=== PATIENT | female | born 1990 | race Caucasian/White ===

== ENCOUNTER 2022-02-25 02:01 | Outpatient (CLI) | payer BC, SELFPAY ==
[2022-02-25 11:51] LABS: Kit/Specimen SENT
[2022-02-25 11:55] LABS: Abs Immature Grans 0.02 10^3/uL (0.0-0.06); Absolute Basophil Count 0.02 10^3/uL (0.0-0.2); Absolute Eosinophil Count 0.02 10^3/uL (0.0-0.7); Absolute Lymphocyte Count 2.31 10^3/uL (1.2-3.4); Absolute Monocyte Count 0.54 10^3/uL (0.1-0.8); Absolute Neutrophil Count 6.74 10^3/uL (1.2-6.7); Basophils % 0.2; Eosinophils % 0.2; HCT 36.7 % (36.0-46.0); HGB 12.3 g/dL (11.2-15.7); Immature Grans % 0.2; Lymphocytes % 23.9; MCH 29.4 pg (27.0-33.0); MCHC 33.5 % (32.0-36.0); MCV 88 fL (80-95); MPV 11.5 fL (8.0-11.0); Monocytes % 5.6; Neutrophils % 69.9; Platelet Count 192 10^3/uL (130-400); RBC 4.18 10^6/uL (3.93-5.22); RDW 11.2 % (11.7-14.6); RDW-SD 35.8 fL; WBC 9.65 10^3/uL (4.4-10.8)
[2022-02-25 14:18] LABS: *AMPHETAMINES SCREEN URINE Negative (Negative); *BARBITURATES SCREEN URINE Negative (Negative); *BENZODIAZEPINES SCREEN URINE Negative (Negative); Cannabinoids THC Negative (Negative); Cocaine Screen,Urine Negative (Negative); METHADONE URINE SCREEN Negative (Negative); OPIATES URINE SCREEN Negative (Negative); Tricyclic Antidepressants Negative (Negative)
[2022-02-28 14:43] LABS: Syphilis IgG w/Reflex Nonreactive (Nonreactive)
[2022-03-05 14:37] LABS: Buprenorphine Negative ng/mL (Cutoff: 5.0); Norbuprenorphine Negative ng/mL (Cutoff: 2.5)
== END 2022-02-25 02:02 | disposition home or self-care (01) ==
LOC: LBO 02:01
PROVIDERS: Visit Provider Advanced Practice Midwife
DX: Z34.91 Encounter for supervision of normal pregnancy, unspecified, first trimester
CPT/HCPCS: 36415; 80307; 86850; 86900; 86901; 85025; 86780; 87086

== ENCOUNTER 2022-06-22 02:10 | Outpatient (CLI) | payer BC, SELFPAY ==
[2022-06-22 09:36] LABS: HGB 11.2 g/dL (11.2-15.7); MCH 29.6 pg (27.0-33.0); MCHC 32.9 % (32.0-36.0); MCV 90 fL (80-95); MPV 10.7 fL (8.0-11.0); Platelet Count 184 10^3/uL (130-400); RBC 3.78 10^6/uL (3.93-5.22); RDW 12.1 % (11.7-14.6); RDW-SD 39.5 fL; WBC 10.08 10^3/uL (4.4-10.8)
[2022-06-22 09:59] LABS: Glucose,1 Hr (Glucola) 111 mg/dL (80-140)
== END 2022-06-22 02:11 | disposition home or self-care (01) ==
LOC: LBO 02:10
PROVIDERS: Visit Provider Advanced Practice Midwife
DX: Z34.93 Encounter for supervision of normal pregnancy, unspecified, third trimester (principal); Z3A.28 28 weeks gestation of pregnancy
CPT/HCPCS: 36415; 82950; 85027

== ENCOUNTER 2022-06-23 17:15 | Outpatient (CLI) | payer BC, SELFPAY ==
[2022-06-23 17:46] VITALS: BP 118/72; PULSE 99; TEMP 37
[2022-06-23 17:48] VITALS: BP 118/72; PULSE 99
--- NOTE | 2022-06-24 08:39 | W.OBNST ---
Date of service: 06/24/22 Time of Service: 08:40 NST Evaluation Reason for NST Reasons for Nonstress Test: OTHER, SEE COMMENT Reason for NST Other: fall Gestational Age Gestational Age in Weeks and Days: 28 Weeks and 2Days Test and Monitor Explained Test/Monitor Explained: Test Explained, Monitor Explained and Patient Verbalized Understanding Vital Signs Blood Pressure: 118/72 Pulse: 99 Temperature: 98.6 F Urine Results Urine Protein: Negative Urine Ketones: Positive Urine Glucose: Negative Urine Blood: Negative NST Information Date on Monitor: 06/23/22 Time on Monitor: 17:45 Date off Monitor: 06/23/22 Time off Monitor: 18:06 Total Time on Monitor: 21 NST Interventions: PO Hydration Contraction Frequency: 0 NST Evaluation Patient States Movement: Present FHR Baseline: 145 Variability: Moderate 6-25 bpm Accelerations: 10x10 Decelerations: None NST Results: Reactive Note N/A NST Note Note: Lisa fell on her hands and knees this morning. She denies striking her abdomen or having any discomfort. She was instructed to come in for an NST for wellbeing. reactive NST. Rest encouraged and call with any discomfort or decreased movement NST Reviewed and Verified by: Jacqueline Harley
[2022-06-24 08:41] VITALS: BP 118/72; PULSE 99; TEMP 37
== END 2022-06-23 18:14 | disposition home or self-care (01) ==
LOC: BCD 17:19 → OBS 17:20
PROVIDERS: Visit Provider Advanced Practice Midwife
DX: W00.9XXA Unspecified fall due to ice and snow, initial encounter (principal); O26.893 Other specified pregnancy related conditions, third trimester; Z3A.28 28 weeks gestation of pregnancy
CPT/HCPCS: 59025

== ENCOUNTER 2022-07-18 01:10 | Outpatient (CLI) | payer BC, SELFPAY ==
--- NOTE | 2022-07-18 07:15 | DI.US_ITS ---
Exam(s) US OB TAMEKA WEIGHT EXAM: US OB TAMEKA WEIGHT CLINICAL HISTORY: covid infection in ,z34.90,U07.1,O98.512. TECHNIQUE: Transabdominal obstetrical ultrasound performed. COMPARISON: No exams were available for comparison FINDINGS:: Number of fetuses: One. position: Vertex. Placental location: Anterior/fundal no evidence of previa. BIOMETRIC DATA: BPD: 80mm = 32+ 0 weeks HC: 293mm = 32+2 weeks AC: 278mm = 31+ 6 weeks FL: 61 mm = 31+ 6 weeks EFW: 1859 Gms = 40% Composite Age: 32+ 0 weeks EDC: 12 September 2022 Heart Rate: 145BPM Amniotic fluid index: 13.8 cm. Amount of fluid is visually within normal limits. IMPRESSION: size and weight are within the expected range. DATA REPOSITORY:
== END 2022-07-18 01:30 ==
LOC: DI 01:10
PROVIDERS: Visit Provider Advanced Practice Midwife
DX: Z86.16 Personal history of COVID-19; Z34.93 Encounter for supervision of normal pregnancy, unspecified, third trimester
CPT/HCPCS: 76816

== ENCOUNTER 2022-08-15 09:52 | Outpatient (REF) | payer BC, SELFPAY ==
[2022-08-15 11:26] LABS: *AMPHETAMINES SCREEN URINE Negative (Negative); *BARBITURATES SCREEN URINE Negative (Negative); *BENZODIAZEPINES SCREEN URINE Negative (Negative); Cannabinoids THC Negative (Negative); Cocaine Screen,Urine Negative (Negative); METHADONE URINE SCREEN Negative (Negative); OPIATES URINE SCREEN Negative (Negative)
[2022-08-15 11:28] LABS: Tricyclic Antidepressants Negative (Negative)
== END 2022-08-15 09:53 | disposition home or self-care (01) ==
LOC: LBN 09:52
PROVIDERS: Visit Provider Advanced Practice Midwife
DX: Z34.93 Encounter for supervision of normal pregnancy, unspecified, third trimester (principal); Z36.85 Encounter for antenatal screening for Streptococcus B; Z3A.35 35 weeks gestation of pregnancy
CPT/HCPCS: 80307; 87081

== ENCOUNTER 2022-08-22 17:08 | Outpatient (REF) | payer BC, SELFPAY | END 2022-08-22 17:09 | disposition home or self-care (01) | LOC: LBN 17:08 | PROVIDERS: Visit Provider Advanced Practice Midwife | DX: O26.893 Other specified pregnancy related conditions, third trimester (principal); R30.0 Dysuria; Z3A.36 36 weeks gestation of pregnancy | CPT/HCPCS: 87086 ==

== ENCOUNTER 2022-09-05 04:48 | Inpatient (IN) | payer BC, SELFPAY ==
[2022-09-05] VITALS (11 sets, daily range): BP systolic 101–122; BP diastolic 58–72; PULSE 57–94; RESP 16–26; TEMP 36.6–36.9
--- NOTE | 2022-09-05 04:49 | W.PM.OBHPL1 ---
Date of service: 09/05/22 Time of Service: 04:30 Assessment and Plan Assessment and plan (1) Uterine contractions: Status: Acute Assessment and plan: 1. Not in active labor on arrival, will observe for 2 hours and reassess for cervical change from /- 2. Reactive tracing obtained, will allow patient to ambulate. SOTO OB-HPI Labor/Delivery History of Present Illness Reason for Visit: uterine contractions Chief Complaint: Uterine Contractions. LIANG Calculator Estimated Delivery Date Method Current WG Current Estimate 09/13/22 Ultrasound #1 38w 6d Other Estimates 09/02/22 LMP (Uncertain) 40w 3d Comments: Lisa and Joey present for assessment of uterine contractions that began at 1030pm on 09/04/22. Denies ROM or show. Baby has been active. States contractions are every 3-4 minutes and more uncomfortable. Patient is coping well. SOTO History of Present Expected Delivery Route/Plan - CLYDE FOB/ - Joey Ashley BG / GBS neg Took childbirth class- prefers no pain medication if possible. She would like to ask for pain meds rather than being offered. Joey only for labor support Specific Issues/Plan 1. Infertility, PCOS conceived at [facility] with Letrizole and clomid treatment. Metformin taken until 12 weeks. 2. level 2 US scheduled per patient request[place] [facility] [place] nml 2a. 1[place] [facility] [place] 20 weeks 110, 1-hr GTT at 28 xaf=002 3. Panorama 02/25 LR female-Previous neg CF, SMA testing through [facility] broad carrier screening at [facility]- Declines AFP 4. Headaches- magnesium PO daily recommended. Headaches improved in 2nd trimester. 5. Lisa had initial COVID vaccines, Joey vaccinated and had 1 booster- Covid infection 05/14/22 - paxlovid escribed, ASA recommended daily- 32 week growth US scheduled 07/18: 40th percentile, TAMEKA=13 Assessment: History Reviewed & Current Review of Systems All systems reviewed & are unremarkable except as noted in HPI and below PFSH All Active Problems (Updated 09/05/22 @ 04:59 by Jacqueline Dexter CNM) Uterine contractions (Acute) Dysuria (Acute) COVID-19 affecting in second trimester (Acute) Chronic headaches (Acute) PCOS (polycystic ovarian syndrome) (Acute) metformin treatment for infertility History of infertility (Acute) H/O removal of cyst (Acute) axillary (Acute) Social History Smoking risk assessment performed?: No History History 1 Para 0 Hx # Term Pregnancies 0 Multiple births 0 Hx # Pregnancies 0 Ectopic pregnancies 0 AB induced 0 Hx Number of Living Children 0 AB spontaneous 0 Meds Allergies and Home Medications Allergies Allergy/AdvReac Type Severity Reaction Status Date / Time diphenhydramine Allergy Severe Hives Verified 09/05/22 04:54 [From Benadryl] Home Medications Medication Instructions Recorded Confirmed Type omeprazole 20 mg capsule,delayed 20 mg PO DAILY 02/25/22 08/29/22 History release vits no.126-ferrous fum tab PO DAILY 02/25/22 08/29/22 History 28 mg iron-folic acid 800 mcg tablet (Classic ) magnesium hydroxide 400 mg (170 mg 400 mg PO DAILY 04/25/22 08/29/22 History magnesium) chewable tablet aspirin 81 mg tablet,delayed 81 mg PO DAILY #30 tabs 05/14/22 08/29/22 Rx release Exam Physical Exam Vital signs: Pulse BP 76 119/70 09/05/22 04:19 09/05/22 04:19 Vital Signs Reviewed: Yes Constitutional Constitutional: no acute distress Detailed Labor and Delivery Exam Dilation: 2 Effacement (%): 70 station: -2 Cervix position: posterior Consistency: soft Wolfe Score: Cervical Points Exam 0 1 2 3 Dilation Closed 1-2cm 3-4 cm 5-6cm Effacement 0-30% 40-50% 60-70% 80% Consistency Firm Medium Soft Station -3 -2 -1,0 +1,+2 Position Posterior Mid Anterior WOLFE Score(Cervical Ripeness Score): 6 Amniotic Membrane Status: Intact Monitor Mode: External Contraction Frequency(min): 3-5 Contraction Duration(sec): 40-60 Contraction Intensity: Mild Fetus A Heart Rate Baseline: 125 Monitor Accelerations: 15 X 15 Monitor Decelerations: None Variability: Moderate (6-25 BPM) Categories: Category I Est. Weight: 7 lb HEENT Exam HEENT Exam: Normal Neck Exam Neck Exam: Normal (visual exam normal, full range of motion) Chest/Brest/Axilla Exam Chest Exam: Not Done Breast Exam Breast Exam: Not Done Respiratory Exam Respiratory Exam: Normal Cardiovascular Exam Cardiovascular Exam: Normal Abdominal Exam Abdominal Exam: Normal (uterus is gravid, size equals dates) Rectal Exam Rectal Exam: Not Done Exam Exam: Normal Extremities Exam Extremities Exam: Normal Back/Spine/Pelvis Exam Back Exam: Not Done Pelvis Adequate: Yes Skin Exam Skin Exam: Normal Neurological Exam Neurological Exam: Normal Psychiatric Exam Psychiatric Exam: Normal Results Results Group Beta Strep: Negative Blood Type: A+ Rubella Status: Immune Varicella Immunity: Immune Lab Results: Hep B&C neg, HIV neg, Syphilis neg, cfDNA through [facility] LR female, CF and SMA neg through [facility], conceived on Clomid and Letrizole Risk Assessment Risk for Shoulder Dystocia Historical/Initial OB: NEGATIVE FOR: Pelvic Abnormality, Pre- BMI>30, Previous Shoulder Dystocia or Previous Macrosomia 40 Weeks: NEGATIVE FOR: EFW> 4500 gms, Maternal Weight Gain >40lb or Post Dates Delivery Plan @ 36wks: NVD planned. Delivery Plan @ 40 wks: NVD Risk for Pre-Eclampsia Yes, if one or more: NEGATIVE FOR: Hx Pre-E/Gest HTN, Chronic HTN, Multiple Gestation, Pre-gestational DM, Renal Disease, Systemic Lupus or APA Syndrome Yes, if 2 or more: POSITIVE FOR: Nulliparity; NEGATIVE FOR: Age>= 35 yrs, >10yr btwn pregnancies, BMI>30, ethinicty, Mother/Sister w/ Pre-E or Previous IUGR Risk for Post- Hemorrhage Initial: NEGATIVE FOR: Multiple Gestation, Previous PPH, Known Clotting Deficiency, Grand Multiparity or Anticoagulation At Risk?: No Counseled re: Active Management: Yes Date/Initials: 09/05/22 KH Risks Reviewed Risks Reviewed Upon Admission: Yes
--- NOTE | 2022-09-05 06:42 | W.PM.OBNL1 ---
Date of service: 09/05/22 Time of Service: 06:42 Pelvic Exam Dilation: 4 Effacement (%): 80 station: -2 Consistency: soft Comments: + show with VE, membranes are bulging at cervix. SOTO Contractions Monitor Mode: Palpation Contraction Frequency(min): 2-3 Contraction Duration(sec): 60 Intensity: Moderate Fetus A Monitor: Doppler Assessment and Plan Assessment and plan (1) Normal labor: Status: Acute Assessment and plan: 1. Admit at this time, CBC and type and screen as well as COVID test 2. Support normal labor and patient desire for minimal interventions 3. Reassess in 2 hours or prn 4. Expect NVD. SOTO Objective Temp Pulse Resp BP 97.9 F 76 18 119/70 09/05/22 04:54 09/05/22 04:54 09/05/22 04:54 09/05/22 04:54 Vital Signs Reviewed: Yes Subjective Interval history since last seen: Lisa is doing well with contractions that are more intense now. SOTO
[2022-09-05 08:02] LABS: HCT 32.5 % (36.0-46.0); HGB 10.7 g/dL (11.2-15.7); MCH 26.8 pg (27.0-33.0); MCHC 32.9 % (32.0-36.0); MCV 82 fL (80-95); MPV 12.4 fL (8.0-11.0); Platelet Count 176 10^3/uL (130-400); RBC 3.99 10^6/uL (3.93-5.22); RDW 12.7 % (11.7-14.6); RDW-SD 37.6 fL; WBC 15.06 10^3/uL (4.4-10.8)
[2022-09-05 08:03] LABS: Source Nasal/Nares
[2022-09-05 09:18] LABS: COVID-19 PCR Negative (Negative)
[2022-09-05] MEDS: Oxytocin 10 UNITS/ML VIAL IM (16:30)
--- NOTE | 2022-09-05 17:13 | OBVDS_ITS ---
Date of service: 09/05/22 Time of Service: 17:13 OB Labor/ Delivery Information Baby A Delivery Delivery Method: Spontaneaous Presentation: Vertex Vertex Position: Right Occipital Anterior Cord Description-Baby A: 3 Vessels and Clamped/Cut Amniotic Fluid: Clear Estimated Blood Loss: 150 Delivery Outcome: Liveborn Infant Complications: none Note: Lisa presented early in the day on 09/05/22 in early labor. Progressed well and was 10 cm at 1620 and second stage huddle done. She delivered a live female DOUGLAS over hemostatic 1st degree laceration at introitus at 1628. Baby was placed skin to skin and positive family bonding was noted. Cord was double clamped and cut by FOB after 4 minutes of delayed cord clamping. 10 units of Pitocin was given IM after baby delivered. Placenta delivered via briseno mechanism at 1637, intact. Fundus firms to U-1 with massage. EBL 150cc. Baby 9 at 1 minute and 9 at 5 minutes. Weight is 6lb9.60z. Lisa and Joey plan to breast feed their daughter. Baby does not have a name yet. Expect normal PP course. Due to infertility couple do not plan a contraceptive use. Providers Nurse Machinist Apprentice Wood: Jacqueline Dexter Nurse: Niya Dillard Nurse: Svitlana Temple Labor/Delivery Information Number of Babies in Womb: 1 Steroids Given: None Reason Steroids Not Administered: N/A Group Beta Strep: Negative Rubella Status: Immune Blood Type: A+ Varicella Immunity: Immune Medication in Delivery: [id number] IM Maternal Complications: None Shoulder Dystocia: No Stages of Labor Onset of Labor Date: 09/04/22 Onset of Labor Time: 22:30 Complete Dilatation Date: 09/05/22 Complete Dilatation Time: 16:20 Labor - Stage 1 Duration: 17 hours and 50 minutes ROM Baby A: 09/05/22 Infant Delivery Date-Baby A: 09/05/22 Infant Delivery Time-Baby A: 16:28 Labor Stage 2 Duration: 8 minutes Placenta Delivery Date-Baby A: 09/05/22 Placenta Delivery Time-Baby A: 16:37 Labor-Stage 3 Duration: 9 minutes Total Length of Labor-Baby A: 17 hours and 58 minutes Placenta Cultured: No Placenta Status: Delivered Baby A Gender: Female Gestational Status: Term (39-41.6 wks) Gestational Age in Weeks/Days: 38 Weeks and 6 Days Score-1 Minute Interval(Baby A) Heart Rate-1 minute: 100 BPM or Greater Respiratory Effort- 1 minute: Spontaneous/Strong Cry Muscle Tone-1 minute: Active Movement Reflex Response-1 minute: Prompt Response Color-1 minute: Bluish Hands or Feet Total Score-1 minute: 9 Score-5 Minute Interval(Baby A) Heart Rate- 5 minute: 100 BPM or Greater Respiratory Effort-5 minute: Spontaneous/Strong Cry Muscle Tone-5 minute: Active Movement Reflex Response-5 minute: Prompt Response Color-5 minute: Bluish Hands or Feet Total Score- 5 minute: 9
[2022-09-05] MEDS: Acetaminophen 325 MG TAB 650 MG PO (17:44)
[2022-09-05] MEDS: Ibuprofen 600 MG TAB PO (17:44)
[2022-09-06 01:14] VITALS: BP 115/67; PULSE 82; RESP 16; TEMP 36.8
[2022-09-06] MEDS: Ibuprofen 600 MG TAB PO (05:49)
[2022-09-06] MEDS: Acetaminophen 325 MG TAB 650 MG PO (05:50)
[2022-09-06 07:50] VITALS: BP 104/65; PULSE 82; RESP 12; TEMP 37
--- NOTE | 2022-09-06 09:22 | OBPPV_ITS ---
Date of service: 09/06/22 Time of Service: 09:22 Assessment and Plan Assessment and plan (1) care following vaginal delivery: Status: Acute Assessment and plan: 1. Continue present management 2. Consider discharge tonight or in am. SOTO (2) Lactating mother: Status: Acute Assessment and plan: 1. Will work with to develop good feeding plan. SOTO Subjective Subjective Interval history: Eva are doing well with their baby girlDionne. Breast feeding is the current challenge. She is doing own ADL's. Denies pain. No heavy bleeding. SOTO [place] baby status: Doing well and Rooming in feeding status: Exclusively breast feeding Exam Physical Exam Vital signs: Temp Pulse Resp BP 98.6 F 82 12 104/65 09/06/22 07:50 09/06/22 07:50 09/06/22 07:50 09/06/22 07:50 Vital Signs Reviewed: Yes Constitutional Constitutional: no acute distress, average body habitus and cooperative HEENT Exam HEENT Exam: Normal Neck Exam Neck Exam: Normal (normal visual inspection) Respiratory Exam Respiratory Exam: Normal Cardiovascular Exam Cardiovascular Exam: Normal Abdominal Exam Abdomen: Other (normal exam) Fundal Exam Fundus: Below Umbilicus and Firm Comment: small lochia noted. Rectal Exam Rectal Exam: Not Done Exam Perineum: Intact and Normal Extremities Exam Extremity Exam: Normal (denies calf tenderness) and Full ROM Back/Spine/Pelvis Exam Back Exam: Normal Skin Exam Skin Exam: Normal Neurological Exam Neurological Exam: Normal Psychiatric Exam Psychiatric Exam: Normal Results Hemoglobin/Hematocrit: Hgb 10.7 g/dL (11.2-15.7) L 09/05/22 07:50 Hct 32.5 % (36.0-46.0) L 09/05/22 07:50 Abnormal Lab Findings: Abnormal Labs 09/05/22 07:50 WBC 15.06 H Hgb 10.7 L Hct 32.5 L MCH 26.8 L MPV 12.4 H
[2022-09-06 19:54] VITALS: BP 129/75; PULSE 80; RESP 16; TEMP 37.1; O2SAT 98
[2022-09-07] MEDS: Ibuprofen 600 MG TAB PO (05:41)
--- NOTE | 2022-09-07 07:33 | OBPPV_ITS ---
Date of service: 09/07/22 Time of Service: 07:33 Assessment and Plan Assessment and plan (1) care following vaginal delivery: Status: Acute Assessment and plan: 1. continue present management, probable discharge later this morning (2) Lactating mother: Status: Acute Assessment and plan: 1. Has worked with for feeding plan, probable discharge later this morning after pediatric assessment. Subjective Subjective Interval history: Lisa is doing well. Feels like she has a good feeding plan for baby. Using nipple shield from time to time. Denies pain or heavy bleeding. Voiding without difficulty. Plans discharge later today. Patient's Mood: happy [place] baby status: Doing well, Nursing well and Rooming in [place] feeding status: Exclusively breast feeding Exam Physical Exam Vital signs: Temp Pulse Resp BP Pulse Ox 98.7 F 80 16 129/75 98 09/06/22 19:54 09/06/22 19:54 09/06/22 19:54 09/06/22 19:54 09/06/22 19:54 Vital Signs Reviewed: Yes Constitutional Constitutional: no acute distress, average body habitus and cooperative HEENT Exam HEENT Exam: Normal Neck Exam Neck Exam: Normal (normal visual inspection) Respiratory Exam Respiratory Exam: Normal Cardiovascular Exam Cardiovascular Exam: Normal Abdominal Exam Abdomen: Other (normal exam) Fundal Exam Fundus: Below Umbilicus and Firm Comment: small lochia noted. Rectal Exam Rectal Exam: Not Done Exam Perineum: Intact and Normal Extremities Exam Extremity Exam: Normal (denies calf tenderness) and Full ROM Back/Spine/Pelvis Exam Back Exam: Normal Skin Exam Skin Exam: Normal Neurological Exam Neurological Exam: Normal Psychiatric Exam Psychiatric Exam: Normal Results Hemoglobin/Hematocrit: Hgb 10.7 g/dL (11.2-15.7) L 09/05/22 07:50 Hct 32.5 % (36.0-46.0) L 09/05/22 07:50 Abnormal Lab Findings: Abnormal Labs 09/05/22 07:50 WBC 15.06 H Hgb 10.7 L Hct 32.5 L MCH 26.8 L MPV 12.4 H
[2022-09-07 08:45] VITALS: BP 106/68; PULSE 76; RESP 16; TEMP 36.6; O2SAT 98
--- NOTE | 2022-09-07 08:59 | W.PM.OBDISCH ---
Date of service: 09/07/22 Time of Service: 08:59 DS: Diagnosis Discharge Diagnosis (1) care following vaginal delivery: Status: Acute Asessment and Plan: 1. Discharge to home, reviewed PP warning signs and when/how to call. 2. RTO in 2 and 6 weeks PP (2) Lactating mother: Status: Acute Asessment and Plan: 1. Breast feeding is getting better today. Working with to develop good feeding plan prior to discharge. 2. RTO 2-6 weeks and pediatric follow up tomorrow and then as scheduled 3. Discussed signs of mastitis and to call with any concerns. Discharge Plan Disposition Patient Disposition: Home Condition: Good Discharge Details Reason For Visit: Uterine Contractions Admit Date/Time: 09/05/22 04:48 Admit Provider: Jacqueline Dexter Attending Provider: Jacqueline Dexter Hospital Course Hospital Course: Normal labor and of live female. Normal PP course. Working with on breast feeding and will follow up with Pediatrics as scheduled. Lisa will RTO in 2 and 6 weeks. Home Meds and New Rx's Prescriptions: Continued Classic 28 mg iron- 800 mcg tablet PO DAILY magnesium hydroxide 400 mg (170 mg magnesium) tablet,chewable 400 mg PO DAILY Discontinued omeprazole 20 mg capsule,delayed release(DR/EC) 20 mg PO DAILY aspirin 81 mg tablet,delayed release (DR/EC) 81 mg PO DAILY Qty: 30 6RF Discharge Instructions Instructions: Mastitis (GEN), Depression (GEN) Stand Alone Forms: BC Instructions, BC Post Vaginal Deliver Activity:: Activity as Tolerated Equipment/Supplies:: No Equipment Needed Diet:: As Tolerated Discharge Orders Discharge Orders: Discharge Order (Routine); Ordered 09/07/22 Ordered By: Jacqueline Dexter OB:DS Summary Summary Vaginal Delivery Method: Spontaneaous Episiotomy Description: None Laceration Description: Perineal Laceration Extension: First Degree Contraception Discussed Contraception Discussed: Yes (due to infertility they opt not to use any contraception), Infant Gender-Baby A: Female weight: 6 lb 9.646 oz Status at Discharge Functional status at discharge: independent ambulation Overall status at discharge: patient is back to baseline Mental Status: mental status grossly normal Speech and Movement: speech and movement normal Mood: congruent mood Affect: normal affect Time Spent with Patient providing and/or coordinating discharge services: Less than 30 minutes Exam Physical Exam Vital signs: Temp Pulse Resp BP Pulse Ox 98.7 F 80 16 129/75 98 09/06/22 19:54 09/06/22 19:54 09/06/22 19:54 09/06/22 19:54 09/06/22 19:54 Vital Signs Reviewed: Yes Constitutional Constitutional: no acute distress, average body habitus and cooperative HEENT Exam HEENT Exam: Normal Neck Exam Neck Exam: Normal (normal visual inspection) Respiratory Exam Respiratory Exam: Normal Cardiovascular Exam Cardiovascular Exam: Normal Abdominal Exam Abdomen: Other (normal exam) Fundal Exam Fundus: Below Umbilicus and Firm Comment: small lochia noted. KH Rectal Exam Rectal Exam: Not Done Exam Perineum: Intact and Normal Extremities Exam Extremity Exam: Normal (denies calf tenderness) and Full ROM Back/Spine/Pelvis Exam Back Exam: Normal Skin Exam Skin Exam: Normal Neurological Exam Neurological Exam: Normal Psychiatric Exam Psychiatric Exam: Normal PFSH All Active Problems (Updated 09/06/22 @ 09:24 by Jacqueline Dexter CNM) Lactating mother (Acute) care following vaginal delivery (Acute) Chronic headaches (Acute) (Acute) Medical History (Updated 09/06/22 @ 09:24 by Jacqueline Dexter CNM) COVID-19 affecting in second trimester Dysuria History of infertility Normal labor PCOS (polycystic ovarian syndrome) metformin treatment for infertility Uterine contractions Surgical History (Updated 09/05/22 @ 06:45 by Jacqueline Dexter CNM) H/O removal of cyst axillary Social History Smoking risk assessment performed?: No History History 1 Para 0 Hx # Term Pregnancies 0 Multiple births 0 Hx # Pregnancies 0 Ectopic pregnancies 0 AB induced 0 Hx Number of Living Children 0 AB spontaneous 0 DS: Data Vitals/I&O Vitals and I&O: Vital Signs Temperature 98.7 F 09/06/22 19:54 Temperature Source Oral 09/06/22 19:54 Pulse 80 09/06/22 19:54 Pulse Rhythm Regular 09/06/22 07:50 Respiratory Rate 16 09/06/22 19:54 Blood Pressure 129/75 09/06/22 19:54 Blood Pressure Mean 93 09/06/22 19:54 Pulse Oximetry 98 09/06/22 19:54 Pain Level 2 09/07/22 05:41 Comment breathing with contrx 09/05/22 15:17 Intake & Output 09/06/22 09/06/22 09/07/22 11:59 23:59 11:59 Output Total 1000 / 1000 Balance -1000 / -1000 Output: Urine 1000 / 1000 Other: Urine Color Yellow
== END 2022-09-07 12:24 | disposition home or self-care (01) | DRG 807 ==
PROVIDERS: Admitting Provider Advanced Practice Midwife; Visit Provider Advanced Practice Midwife
DX: O99.284 Endocrine, nutritional and metabolic diseases complicating childbirth (principal); Z37.0 Single live birth; Z3A.38 38 weeks gestation of pregnancy; E28.2 Polycystic ovarian syndrome; R51.9 Headache, unspecified; O75.89 Other specified complications of labor and delivery
CPT/HCPCS: 36415; 85027; 86850; 86900; 86901; 87635; J2590

== ENCOUNTER 2022-09-20 16:42 | Outpatient (CLI) | payer BC, SELFPAY | END 2022-09-20 16:43 | disposition home or self-care (01) | LOC: LBO 16:42 | PROVIDERS: Visit Provider Advanced Practice Midwife | DX: O92.79 Other disorders of lactation; O99.285 Endocrine, nutritional and metabolic diseases complicating the puerperium | CPT/HCPCS: 36415; 84443 ==

== ENCOUNTER 2022-10-17 13:43 | Outpatient (REF) | payer BC, SELFPAY ==
--- NOTE | 2022-10-17 13:15 | PAPFT_PTH ---
PATIENT: Lisa Ramirez LOC: [facility] U#:[id number] AGE/SX: 32/F ROOM: RE10/17/[address]: Jacqueline Dexter CNM : 1990 BED: DIS: 10/17/2022 SPEC #: [id number] RECD: 10/17/22 18:06 STATUS: AYANNA REQ #: [id number] HANNAH: 10/17/22 13:[address]: Jacqueline Dexter DEPT: [facility] Cytology RECD BY: Aileen Flores Tissues: 1 - CX/ENDOCX FOR PAP SMEARS Procedures: PAP THIN PREP/UVM Screening HPV DNA PROBE Comments: [id number]
== END 2022-10-17 13:44 | disposition home or self-care (01) ==
LOC: LBN 13:43
PROVIDERS: Visit Provider Advanced Practice Midwife
DX: Z12.4 Encounter for screening for malignant neoplasm of cervix (principal); Z11.51 Encounter for screening for human papillomavirus (HPV)
CPT/HCPCS: 88142; 87624

== ENCOUNTER 2023-10-02 18:24 | Outpatient (CLI) | payer BC, SELFPAY ==
[2023-10-02 16:10] LABS: Hemoglobin A1C 5.5 % (<5.7)
[2023-10-02 17:00] LABS: HCG Quant, Pregnancy 1 mIU/mL (1-3); TSH 1.19 uIU/Ml (0.36-3.74)
[2023-10-02 23:14] LABS: Estradiol 40 pg/mL (See Note); Progesterone 0.5 ng/mL (See Table)
[2023-10-03 09:26] LABS: LH 5.2 mIU/mL (See Note); Thyroperoxidase Antibody <28 U/mL (<=60)
[2023-10-03 09:55] LABS: Hepatitis B Surface Ag Negative (Negative); Syphilis Serology (RPR) Negative (Negative)
[2023-10-03 10:05] LABS: Varicella IgG Antibody Positive (See Note)
[2023-10-03 10:11] LABS: Rubella IgG Ab (UVM) Positive (See Note)
[2023-10-03 10:29] LABS: Hepatitis C Ab w Rflx HCV PCR Negative (Negative)
[2023-10-03 10:40] LABS: Hep B Core Antibody Negative (Negative)
[2023-10-03 11:34] LABS: HIV-1/2 Ag & Ab Screen Negative (Negative)
[2023-10-03 16:13] LABS: Chlamydia Result Negative (Negative); GC Result Negative (Negative)
[2023-10-04 18:51] LABS: Antimullerian Hormone 1.5 ng/mL (0.58-8.1)
== END 2023-10-02 18:25 | disposition home or self-care (01) ==
LOC: LBO 18:24
PROVIDERS: Visit Provider Nurse Practitioner Family
DX: Z11.3 Encounter for screening for infections with a predominantly sexual mode of transmission (principal); Z11.4 Encounter for screening for human immunodeficiency virus [HIV]; Z01.83 Encounter for blood typing; Z13.29 Encounter for screening for other suspected endocrine disorder; Z11.59 Encounter for screening for other viral diseases; N97.9 Female infertility, unspecified
CPT/HCPCS: 36415; 86704; 86787; 86803; 86900; 86901; 87340; 87389; 87491; 87591; 82670; 83002; 83036; 83520; 84144; 84443; 84702; 86376; 86592; 86762

== ENCOUNTER 2023-11-15 09:56 | Outpatient (CLI) | payer BC, SELFPAY ==
[2023-11-15 09:20] LABS: HCG Quant, Pregnancy < 1 mIU/mL (1-3)
[2023-11-15 18:00] LABS: Progesterone 0.4 ng/mL (See Table)
== END 2023-11-15 09:57 | disposition home or self-care (01) ==
LOC: LBO 09:56
PROVIDERS: Visit Provider Nurse Practitioner Family
DX: N97.9 Female infertility, unspecified (principal)
CPT/HCPCS: 36415; 84144; 84702

== ENCOUNTER 2024-05-08 07:57 | Outpatient (CLI) | payer BC, SELFPAY ==
[2024-05-08 07:56] LABS: HCG Quant, Pregnancy < 1 mIU/mL (1-3)
[2024-05-08 18:01] LABS: Estradiol 35 pg/mL (See Note); Progesterone 0.4 ng/mL (See Table)
[2024-05-08 18:10] LABS: LH 6.9 mIU/mL (See Note)
== END 2024-05-08 07:58 | disposition home or self-care (01) ==
LOC: LBO 07:57
PROVIDERS: Visit Provider Nurse Practitioner Family
DX: N97.9 Female infertility, unspecified (principal)
CPT/HCPCS: 36415; 82670; 83002; 84144; 84702

== ENCOUNTER 2024-06-11 08:05 | Outpatient (CLI) | payer BC, SELFPAY ==
[2024-06-11 07:51] LABS: HCG Quant, Pregnancy 618 mIU/mL (1-3)
[2024-06-11 18:47] LABS: Estradiol 881 pg/mL (See Note); Progesterone 25.6 ng/mL (See Table)
== END 2024-06-11 08:06 | disposition home or self-care (01) ==
LOC: LBO 08:07
PROVIDERS: Visit Provider Obstetrics & Gynecology Reproductive Endocrinology
DX: Z32.01 Encounter for pregnancy test, result positive (principal)
CPT/HCPCS: 36415; 82670; 84144; 84702

== ENCOUNTER 2024-07-08 06:09 | Emergency (ER) | payer BC, SELFPAY ==
[2024-07-08 06:12] VITALS: BP 147/78; PULSE 127; RESP 18; TEMP 36.5; O2SAT 99
[2024-07-08 06:41] LABS: Abs Immature Grans 0.05 10^3/uL (0.0-0.06); Absolute Basophil Count 0.04 10^3/uL (0.0-0.2); Absolute Eosinophil Count 0.07 10^3/uL (0.0-0.7); Absolute Lymphocyte Count 1.85 10^3/uL (1.2-3.4); Absolute Neutrophil Count 7.04 10^3/uL (1.2-6.7); Basophils % 0.4 %; Eosinophils % 0.7 %; HGB 13.7 g/dL (11.2-15.7); Immature Grans % 0.5 %; Lymphocytes % 19.2 %; MCH 29.1 pg (27.0-33.0); MCHC 33.4 % (32.0-36.0); MCV 87 fL (80-95); MPV 11.5 fL (8.0-11.0); Monocytes % 6.2 %; Platelet Count 183 10^3/uL (130-400); RBC 4.71 10^6/uL (3.93-5.22); RDW 11.8 % (11.7-14.6); RDW-SD 37.8 fL; WBC 9.65 10^3/uL (4.4-10.8)
--- NOTE | 2024-07-08 06:43 | ED.GENADUL_ITS ---
Discharge Plan Disposition Patient Disposition: Home Condition: Good Discharge Details Chief Complaint: FINANCIAL REPORTING SPECIALIST Clinical Impression: Threatened miscarriage Primary Care Provider: Unknown,Unknown ED Provider: tOf Winslow Home Meds and New Rx's Prescriptions: No Action Classic 28 mg iron- 800 mcg tablet 1 tab PO DAILY magnesium hydroxide 400 mg (170 mg magnesium) tablet,chewable 400 mg PO DAILY Discharge Instructions Instructions: Bleeding in Early ED Additional Instructions: At this time your cervix is closed, your baby's heart rate is normal, and there is no sign of inevitable miscarriage. However there still is a risk that things could negatively progress. Please abstain from any intercourse, and continue to perform pelvic rest until you are seen and reassessed by your obstetrics social human services assistants. Please follow-up closely with your in vitro fertilization team. If you notice any worsening of your symptoms, or any new symptoms such as vomiting, diarrhea, fever, chills, shortness of breath, chest pain, numbness, weakness, or fainting , please return immediately to the emergency department for reevaluation. Please follow up with your primary care provider as soon as possible for reassessment and reevaluation. As always, it was a pleasure participating in your medical care today. HPI General Date/Time Provider Initiated Documentation: 07/08/24 06:22 . HPI Narrative: 34-year-old female who is a G2, P1 who is currently 8 weeks secondary to in vitro fertilization who sees the [facility] in [place], presents today for vaginal bleeding. Patient woke up about an hour ago and went to the bathroom and when she wiped she noticed clots. She had no pain or discomfort. No hemorrhage. Her Rh status is Rh+. She has no other complaints at this time. No known history of miscarriages or bleeding problems. She has not had intercourse for a few weeks. Related Data Home Medications ?Medication ?Instructions ?Recorded ?Confirmed vits no.126-ferrous fum 1 tab PO DAILY 02/25/22 07/08/24 28 mg iron-folic acid 800 mcg tablet (Classic ) magnesium hydroxide 400 mg (170 mg 400 mg PO DAILY 04/25/22 07/08/24 magnesium) chewable tablet Allergies Allergy/AdvReac Type Severity Reaction Status Date / Time diphenhydramine (From Allergy Severe Hives Verified 07/08/24 06:16 Benadryl) General Stated Complaint: FINANCIAL REPORTING SPECIALIST MAXIMUS: 4 Exam Narrative Exam Narrative: 1.Const: Well-nourished, Well-developed, appearing stated age 2.Eyes: PERRL, no conjunctival injection, and symmetrical lids. 3.ENT: Atraumatic external nose and ears. Moist MM. Neck: Symmetric, trachea midline, No thyromegaly. 4.CVS: +S1/S2, Peripheral pulses 2+ and equal in all extremities. Brisk capillary refill in all extremities. 5.RESP: Unlabored respiratory effort. Clear to auscultation bilaterally. No wheezes rales or rhonchi 6.GI: Soft, Nontender/Nondistended, No hepatosplenomegaly. No guarding or rebound. No pelvic pain or tenderness. Genital exam was performed with female nurse Sameer at bedside, no active bleeding, small brown clots are present. Cervix is closed and nontender. 7.MSK: Normocephalic/Atraumatic, Extremities w/o deformity or ttp No cyanosis or clubbing, Normal movement of all extremities 8.Skin: Warm, Dry. No rashes or lesions. 9.Neuro: impress associate II-XII grossly intact. Sensation grossly intact, no focal neurologic deficits. 10.Psych: (AAO) x3. Appropriate mood and affect Course Vital Signs Vital signs: Vital Signs Temperature 36.5 C 07/08/24 06:12 Pulse 127 H 07/08/24 06:12 Respiratory Rate 18 07/08/24 06:12 Blood Pressure 147/78 H 07/08/24 06:12 Pulse Oximetry 99 07/08/24 06:12 Temperature 36.5 C 07/08/24 06:12 Pulse 127 H 07/08/24 06:12 Respiratory Rate 18 07/08/24 06:12 Blood Pressure 147/78 H 07/08/24 06:12 Blood Pressure Position Sitting 07/08/24 06:12 Pulse Oximetry 99 07/08/24 06:12 Oxygen Delivery Method Room Air 07/08/24 06:12 Oxygen Flow Rate 0 07/08/24 06:12 Pain Level 0 07/08/24 06:17 Lab/Test Results Lab/Test Results: Laboratory Tests Range/Units 07/08/24 06:28 WBC (4.4-10.8) 10^3/uL 9.65 RBC (3.93-5.22) 10^6/uL 4.71 Hgb (11.2-15.7) g/dL 13.7 Hct (36.0-46.0) % 41.0 MCV (80-95) fL 87 MCH (27.0-33.0) pg 29.1 MCHC (32.0-36.0) % 33.4 RDW (11.7-14.6) % 11.8 Plt Count (130-400) 10^3/uL 183 MPV (8.0-11.0) fL 11.5 H Immature Gran % % 0.5 Neutrophils % % 73.0 Lymphocytes % % 19.2 Monocytes % % 6.2 Eosinophils % % 0.7 Basophils % % 0.4 Nucleated RBC % (0.0-0.3) % 0.0 Absolute Neutrophils (1.2-6.7) 10^3/uL 7.04 H Absolute Lymphocytes (1.2-3.4) 10^3/uL 1.85 Absolute Monocytes (0.1-0.8) 10^3/uL 0.60 Absolute Eosinophils (0.0-0.7) 10^3/uL 0.07 Absolute Basophils (0.0-0.2) 10^3/uL 0.04 Medical Decision Making 34-year-old female who is a G2, P1 who is currently 8 weeks secondary to in vitro fertilization who sees the [facility] in [place], presents today for vaginal bleeding. Patient woke up about an hour ago and went to the bathroom and when she wiped she noticed clots. She had no pain or discomfort. No hemorrhage. Her Rh status is Rh+. She has no other complaints at this time. No known history of miscarriages or bleeding problems. She has not had intercourse for a few weeks. Physical exam demonstrates no pelvic tenderness, no vaginal tenderness. She has no active bleeding. Cervix is closed. There is no evidence of active hemorrhage. Bedside ultrasound shows in-place fetus, heart rate is 160. No vascular lakes. Patient has no other complaints. Rh status was confirmed at [facility]. Diagnosis is threatened miscarriage. Will recommend pelvic rest, close follow-up with her obstetrics team. Discussed red flags for which to return. I have extensively reviewed the treatment plan and discharge instructions with the patient. I have addressed all patient concerns at this time. The patient was made aware of what symptoms to monitor for that would warrant a return to the emergency department. Discussed the plan with the patient, they demonstrate verbal understanding and agreement with our assessment and plan at this time. The documentation in this chart was dictated using [id number] dictation software. Please excuse any dictation errors. Quality:SDOH Health Related Social Needs: No Data to Display PFSH All Active Problems (Updated 07/08/24 @ 06:46 by Otf Winslow DO) Threatened miscarriage (Acute) Urinary incontinence (Acute) disorder (Acute) Lactating mother (Acute) care following vaginal delivery (Acute) Chronic headaches (Acute) Medical History (Updated 07/08/24 @ 06:46 by Otf Winslow DO) Normal labor Uterine contractions Dysuria COVID-19 affecting in second trimester PCOS (polycystic ovarian syndrome) metformin treatment for infertility History of infertility Surgical History H/O removal of cyst axillary Social History Smoking/Tobacco Use Status: Never Smoking risk assessment performed?: Yes Alcohol Intake: never Substance use type: does not use History History 1 Para 1 Hx # Term Pregnancies 1 Multiple births 0 Hx # Pregnancies 0 Ectopic pregnancies 0 AB induced 0 Hx Number of Living Children 1 AB spontaneous 0 Past Pregnancies Del. Date GA/Weeks # Preg Succ Route Wgt Sex Labor Lgth Anesth esia Location Prov Complic 09/05/22 38 No Yes vaginal 2993.71 g Female 17hrs 58min [facility] Delivery Date: 09/05/22 Last Updated by: ANGIE Almeida POCUS Exam (ED) Limited Pelvic Exam DATE OF EXAM: 07/08/24 TIME OF EXAM: 06:54 PROVIDER THAT PERFORMED THE STUDY: Otf Winslow IS THIS A REPEAT EXAM DURING THIS ENCOUNTER: No Type of Exam: Pelvic Trans Abdominal Exam REASON FOR EXAM: Vaginal Bleeding VISUALIZED STRUCTURES: Uterus PERTINENT FINDINGS/IMPRESSION: No apparent abnormalities and Other (Fetus in place, heart rate 160) impression: Fetus with heart rate of 160 Exam Complete
[2024-07-08 07:07] VITALS: BP 115/86; PULSE 77; RESP 16; O2SAT 96
== END 2024-07-08 07:07 | disposition home or self-care (01) ==
PROVIDERS: Emergency Provider Student in an Organized Health Care Education/Training Program
DX: O20.0 Threatened abortion (principal); O09.811 Supervision of pregnancy resulting from assisted reproductive technology, first trimester; Z3A.08 8 weeks gestation of pregnancy
CPT/HCPCS: 76857; 86900; 86901; 99284; 84702; 85025; 99283

== ENCOUNTER 2024-07-22 02:59 | Outpatient (CLI) | payer BC, SELFPAY ==
[2024-07-22 15:23] LABS: Abs Immature Grans 0.03 10^3/uL (0.0-0.06); Absolute Basophil Count 0.02 10^3/uL (0.0-0.2); Absolute Eosinophil Count 0.06 10^3/uL (0.0-0.7); Absolute Lymphocyte Count 2.11 10^3/uL (1.2-3.4); Absolute Monocyte Count 0.54 10^3/uL (0.1-0.8); Absolute Neutrophil Count 6.57 10^3/uL (1.2-6.7); Basophils % 0.2 %; Eosinophils % 0.6 %; HGB 13.2 g/dL (11.2-15.7); Immature Grans % 0.3 %; Lymphocytes % 22.6 %; MCH 29.1 pg (27.0-33.0); MCHC 33.8 % (32.0-36.0); MCV 86 fL (80-95); Monocytes % 5.8 %; Neutrophils % 70.5 %; Platelet Count 197 10^3/uL (130-400); RBC 4.54 10^6/uL (3.93-5.22); RDW 11.9 % (11.7-14.6); RDW-SD 37.2 fL; WBC 9.33 10^3/uL (4.4-10.8)
[2024-07-22 19:50] LABS: Hemoglobin A1C 5.2 % (<5.7)
[2024-07-23 09:25] LABS: Hepatitis B Surface Ag Negative (Negative)
[2024-07-23 09:57] LABS: HIV-1/2 Ag & Ab Screen Negative (Negative)
[2024-07-23 10:18] LABS: Hepatitis C Ab w Rflx HCV PCR Negative (Negative)
[2024-07-23 10:51] LABS: Rubella IgG Ab (UVM) Positive (See Note); Varicella IgG Antibody Positive (See Note)
[2024-07-24 18:44] LABS: Syphilis IgG w/Reflex Nonreactive (Nonreactive)
== END 2024-07-22 03:00 | disposition home or self-care (01) ==
LOC: LBO 02:59
PROVIDERS: Visit Provider Advanced Practice Midwife
DX: Z34.91 Encounter for supervision of normal pregnancy, unspecified, first trimester (principal)
CPT/HCPCS: 36415; 86787; 86803; 86850; 86900; 86901; 87340; 87389; 83036; 85025; 86762; 86780

== ENCOUNTER 2024-07-22 15:16 | Outpatient (REF) | payer BC, SELFPAY ==
[2024-07-24 12:08] LABS: Chlamydia Result Negative (Negative); GC Result Negative (Negative)
== END 2024-07-22 15:17 | disposition home or self-care (01) ==
LOC: LBN 15:16
PROVIDERS: Visit Provider Advanced Practice Midwife
DX: Z34.91 Encounter for supervision of normal pregnancy, unspecified, first trimester (principal)
CPT/HCPCS: 87491; 87591; 87086

== ENCOUNTER 2024-08-19 02:47 | Outpatient (CLI) | payer BC, SELFPAY ==
[2024-08-19 12:02] LABS: Panorama Kit Sent via Fed Ex
== END 2024-08-19 02:48 | disposition home or self-care (01) ==
LOC: LBO 02:47
PROVIDERS: Visit Provider Advanced Practice Midwife
DX: Z34.91 Encounter for supervision of normal pregnancy, unspecified, first trimester (principal)
CPT/HCPCS: 36415

== ENCOUNTER 2024-08-22 08:14 | Outpatient (CLI) | payer BC, SELFPAY ==
--- NOTE | 2024-08-22 08:30 | RT.EKG_ITS ---
APPROVED REPORT Exam: Resting ECG Reason for Exam: r/o arhythmia Patient Location: O HR:67 bpm ECG Measurements Heart Rate 67 AXIS OH 152 P 29 QRSd 85 QRS 48 QT 376 T 33 QTc 397 Conclusion Sinus rhythm...normal P axis, V-rate 50- 99 Normal Electrocardiogram
== END 2024-08-22 08:15 | disposition home or self-care (01) ==
PROVIDERS: Visit Provider Advanced Practice Midwife
DX: Z82.49 Family history of ischemic heart disease and other diseases of the circulatory system; O26.899 Other specified pregnancy related conditions, unspecified trimester; R01.1 Cardiac murmur, unspecified; Z3A.14 14 weeks gestation of pregnancy
CPT/HCPCS: 93005; 93010

== ENCOUNTER 2024-11-19 02:56 | Outpatient (CLI) | payer BC, SELFPAY ==
[2024-11-19 11:50] LABS: Abs Immature Grans 0.08 10^3/uL (0.0-0.06); Absolute Basophil Count 0.03 10^3/uL (0.0-0.2); Absolute Eosinophil Count 0.03 10^3/uL (0.0-0.7); Absolute Lymphocyte Count 1.65 10^3/uL (1.2-3.4); Absolute Monocyte Count 0.45 10^3/uL (0.1-0.8); Absolute Neutrophil Count 7.04 10^3/uL (1.2-6.7); Basophils % 0.3 %; Eosinophils % 0.3 %; HCT 33.7 % (36.0-46.0); HGB 10.9 g/dL (11.2-15.7); Immature Grans % 0.9 %; Lymphocytes % 17.8 %; MCH 27.7 pg (27.0-33.0); MCHC 32.3 % (32.0-36.0); MCV 86 fL (80-95); MPV 10.9 fL (8.0-11.0); Monocytes % 4.8 %; Neutrophils % 75.9 %; Platelet Count 174 10^3/uL (130-400); RBC 3.94 10^6/uL (3.93-5.22); RDW 13.1 % (11.7-14.6); RDW-SD 40.2 fL; WBC 9.28 10^3/uL (4.4-10.8)
[2024-11-19 11:59] LABS: Glucose,1 Hr (Glucola) 132 mg/dL (80-140)
== END 2024-11-19 02:57 | disposition home or self-care (01) ==
PROVIDERS: Obstetrics & Gynecology; Visit Provider Advanced Practice Midwife
DX: Z34.92 Encounter for supervision of normal pregnancy, unspecified, second trimester (principal)
CPT/HCPCS: 36415; 82950; 85025

== ENCOUNTER 2024-12-18 01:59 | Outpatient (CLI) | payer BC, SELFPAY ==
--- NOTE | 2024-12-18 08:55 | DI.US_ITS ---
Exam(s) US OB TAMEKA WEIGHT EXAM: US OB TAMEKA WEIGHT CLINICAL HISTORY: ,advanced maternal age,z34.90. TECHNIQUE: Transabdominal obstetrical ultrasound performed. COMPARISON: US US OB TAMEKA WEIGHT from 07/18/2022 US POCUS EXAM from 07/22/2024 FINDINGS: Number of fetuses: 1 position: CEPHALIC Placental location: There is a grade 2 anterior placenta. The placental tip is greater than 5 cm from the internal os. No evidence of previa. BIOMETRIC DATA: BPD: 8.12cm, 32weeks 4days HC: 29.32cm, 32weeks 2days AC: 29.69cm, 33weeks 5days FL: 6.19cm, 32weeks 1day EFW: 2,093.29g, 4lb 10.91oz, 83.2% Composite Age: 32weeks 5days LIANG: 02/07/2025 Heart Rate: 148bpm Amniotic fluid index: 19.53cm. The largest pocket is 7.6 cm. IMPRESSION: 1. Single live intrauterine gestation as above. 2. Estimated weight is 2093gms. This is the 83rd percentile. 3. Amniotic fluid index is 19.5 cm. The largest pocket is 7.6 cm. DATA REPOSITORY:
== END 2024-12-18 02:19 ==
PROVIDERS: Visit Provider Advanced Practice Midwife
DX: O09.513 Supervision of elderly primigravida, third trimester (principal); Z3A.32 32 weeks gestation of pregnancy
CPT/HCPCS: 76816

== ENCOUNTER 2025-01-02 07:36 | Outpatient (CLI) | payer BC, SELFPAY ==
[2025-01-02 15:00] VITALS: BP 110/70; PULSE 103; TEMP 36.5
[2025-01-02 15:01] VITALS: BP 110/70; PULSE 103
--- NOTE | 2025-01-02 15:53 | W.OBNST ---
Date of service: 01/02/25 Time of Service: 15:53 NST Evaluation Reason for NST Reasons for Nonstress Test: OTHER, SEE COMMENT Reason for NST Other: IVF Gestational Age Gestational Age in Weeks and Days: 33 Weeks and 5Days Test and Monitor Explained Test/Monitor Explained: Test Explained and Monitor Explained Vital Signs Blood Pressure: 110/70 Pulse: 103 Temperature: 97.7 F Urine Results Urine Protein: Negative Urine Ketones: Negative Urine Glucose: Negative Urine Blood: Negative NST Information Date on Monitor: 01/02/25 Time on Monitor: 15:00 Date off Monitor: 01/02/25 Time off Monitor: 15:27 Total Time on Monitor: 27 NST Interventions: PO Hydration Contraction Frequency: 0 NST Evaluation Patient States Movement: Present FHR Baseline: 145 Variability: Moderate 6-25 bpm Accelerations: 15x15 Decelerations: None NST Results: Reactive Note Ultrasound Done: N/A. NST Note Note: Next NST in 2 wks NST Reviewed and Verified by: Kath Alcazar
[2025-01-02 15:54] VITALS: BP 110/70; PULSE 103; TEMP 36.5
== END 2025-01-02 15:35 ==
LOC: BCD 07:40 → OBS 14:50
PROVIDERS: Visit Provider Advanced Practice Midwife
DX: Z3A.33 33 weeks gestation of pregnancy (principal); O09.513 Supervision of elderly primigravida, third trimester; O09.813 Supervision of pregnancy resulting from assisted reproductive technology, third trimester
CPT/HCPCS: 59025

== ENCOUNTER 2025-01-10 11:26 | Outpatient (CLI) | payer BC, SELFPAY ==
[2025-01-10 11:53] VITALS: BP 105/59; PULSE 99; TEMP 37.5
--- NOTE | 2025-01-10 14:02 | W.OBNST ---
Date of service: 01/10/25 Time of Service: 14:02 NST Evaluation Reason for NST Reasons for Nonstress Test: DECREASED MOVEMENT Gestational Age Gestational Age in Weeks and Days: 34 Weeks and 6Days Test and Monitor Explained Test/Monitor Explained: Test Explained, Monitor Explained and Patient Verbalized Understanding Vital Signs Blood Pressure: 105/59 Pulse: 99 Temperature: 99.5 F NST Information Date on Monitor: 01/10/25 Time on Monitor: 11:45 Date off Monitor: 01/10/25 Time off Monitor: 12:24 Total Time on Monitor: 39 NST Evaluation Patient States Movement: Present FHR Baseline: 145 Variability: Moderate 6-25 bpm Accelerations: 15x15 NST Results: Reactive Note Ultrasound Done: N/A. NST Note Note: Lisa was at work and reported decreased movement. Baby was active during exam and reactive NST. NST Reviewed and Verified by: Jacqueline Harley
[2025-01-10 14:03] VITALS: BP 105/59; PULSE 99; TEMP 37.5
== END 2025-01-10 12:24 ==
LOC: BCD 11:26 → OBS 11:41
PROVIDERS: Visit Provider Advanced Practice Midwife
DX: O36.8131 Decreased fetal movements, third trimester, fetus 1 (principal); Z3A.34 34 weeks gestation of pregnancy
CPT/HCPCS: 59025

== ENCOUNTER 2025-01-16 07:16 | Outpatient (CLI) | payer BC, SELFPAY ==
[2025-01-16 15:37] VITALS: BP 116/67; PULSE 107
[2025-01-16 16:18] VITALS: BP 115/67; PULSE 86
--- NOTE | 2025-01-17 08:57 | W.OBNST ---
Date of service: 01/16/25 Time of Service: 17:00 NST Evaluation Reason for NST Reasons for Nonstress Test: ADVANCED MATERNAL AGE and OTHER, SEE COMMENT Reason for NST Other: IVF Gestational Age Gestational Age in Weeks and Days: 35 Weeks and 5Days Test and Monitor Explained Test/Monitor Explained: Test Explained, Monitor Explained and Patient Verbalized Understanding Vital Signs Blood Pressure: 115/67 Pulse: 86 NST Information Date on Monitor: 01/16/25 Time on Monitor: 15:35 Date off Monitor: 01/16/25 Time off Monitor: 16:04 Total Time on Monitor: 29 NST Interventions: None NST Evaluation Patient States Movement: Present FHR Baseline: 150 Variability: Moderate 6-25 bpm Accelerations: 15x15 Decelerations: None NST Results: Reactive Note Ultrasound Done: N/A. NST Note Note: weekly NST's for IVF/AMA status. NST Reviewed and Verified by: Kath Alcazar
[2025-01-17 08:58] VITALS: BP 115/67; PULSE 86
== END 2025-01-16 16:27 ==
LOC: BCD 07:21 → OBS 15:31
PROVIDERS: Visit Provider Advanced Practice Midwife
DX: Z3A.35 35 weeks gestation of pregnancy (principal); O09.813 Supervision of pregnancy resulting from assisted reproductive technology, third trimester; O09.513 Supervision of elderly primigravida, third trimester
CPT/HCPCS: 59025

== ENCOUNTER 2025-01-23 07:25 | Outpatient (CLI) | payer BC, SELFPAY ==
[2025-01-23 15:32] VITALS: BP 120/71; PULSE 101; TEMP 36.9
[2025-01-23 15:37] VITALS: BP 120/71; PULSE 101
[2025-01-23 16:37] VITALS: BP 120/71; PULSE 101; TEMP 36.9
--- NOTE | 2025-01-23 16:37 | W.OBNST ---
Date of service: 01/23/25 Time of Service: 16:37 NST Evaluation Reason for NST Reasons for Nonstress Test: OTHER, SEE COMMENT Reason for NST Other: AMA and IVF Gestational Age Gestational Age in Weeks and Days: 36 Weeks and 5Days Test and Monitor Explained Test/Monitor Explained: Test Explained, Monitor Explained and Patient Verbalized Understanding Vital Signs Blood Pressure: 120/71 Pulse: 101 Temperature: 98.4 F NST Information Date on Monitor: 01/23/25 Time on Monitor: 15:36 Date off Monitor: 01/23/25 Time off Monitor: 16:04 Total Time on Monitor: 28 NST Interventions: PO Hydration Contraction Frequency: 2 throughout NST NST Evaluation Patient States Movement: Present FHR Baseline: 145 Variability: Moderate 6-25 bpm Accelerations: 15x15 Decelerations: None NST Results: Reactive Note Ultrasound Done: N/A. NST Note NST Reviewed and Verified by: Kath Alcazar
[2025-01-23 16:49] LABS: HCT 31.5 % (36.0-46.0); HGB 9.7 g/dL (11.2-15.7); MCH 24.7 pg (27.0-33.0); MCHC 30.8 % (32.0-36.0); MCV 80 fL (80-95); MPV 10.9 fL (8.0-11.0); Platelet Count 174 10^3/uL (130-400); RBC 3.92 10^6/uL (3.93-5.22); RDW 14.5 % (11.7-14.6); RDW-SD 42.2 fL; WBC 7.57 10^3/uL (4.4-10.8)
== END 2025-01-23 16:45 ==
LOC: BCD 13:46 → OBS 15:29
PROVIDERS: Visit Provider Advanced Practice Midwife
DX: Z3A.36 36 weeks gestation of pregnancy (principal); O09.813 Supervision of pregnancy resulting from assisted reproductive technology, third trimester
CPT/HCPCS: 36415; 85027; 59025; 87081

== ENCOUNTER 2025-01-24 07:13 | Outpatient (CLI) | payer BC, SELFPAY ==
[2025-01-24 15:50] VITALS: BP 119/69; PULSE 96; TEMP 36.9
[2025-01-24 15:54] VITALS: BP 119/69; PULSE 96
[2025-01-24] MEDS: Normal Saline Flush 10 ML SYR IVP (16:11)
[2025-01-24] MEDS: IRON SUCROSE COMPLEX 200 MG in Normal Saline 100 ML 400 MG IVPB (16:12)
[2025-01-24 16:40] VITALS: BP 119/69; PULSE 96; TEMP 36.9
--- NOTE | 2025-01-24 16:40 | W.OBNST ---
Date of service: 01/24/25 Time of Service: 16:40 NST Evaluation Reason for NST Reasons for Nonstress Test: OTHER, SEE COMMENT Reason for NST Other: IVF Gestational Age Gestational Age in Weeks and Days: 36 Weeks and 6Days Test and Monitor Explained Test/Monitor Explained: Test Explained and Monitor Explained Vital Signs Blood Pressure: 119/69 Pulse: 96 Temperature: 98.4 F NST Information Date on Monitor: 01/24/25 Time on Monitor: 15:50 Date off Monitor: 01/24/25 Time off Monitor: 16:14 Total Time on Monitor: 24 NST Interventions: PO Hydration NST Evaluation Patient States Movement: Present FHR Baseline: 150 Variability: Moderate 6-25 bpm Accelerations: 15x15 Decelerations: None NST Results: Reactive Note Ultrasound Done: N/A. NST Note Note: Here for iron infusion, RTO weekly NST Reviewed and Verified by: Kath Alcazar
== END 2025-01-24 16:40 ==
LOC: BCD 07:13 → OBS 15:46
PROVIDERS: Visit Provider Advanced Practice Midwife
DX: Z3A.36 36 weeks gestation of pregnancy (principal); O09.813 Supervision of pregnancy resulting from assisted reproductive technology, third trimester
CPT/HCPCS: 96365; 59025; J1756

== ENCOUNTER 2025-01-30 07:24 | Outpatient (CLI) | payer BC, SELFPAY ==
[2025-01-30 15:49] VITALS: BP 125/70; PULSE 90; TEMP 36.5
[2025-01-30 15:57] VITALS: BP 125/70; PULSE 90
--- NOTE | 2025-01-30 16:34 | W.OBNST ---
Date of service: 01/30/25 Time of Service: 16:34 NST Evaluation Reason for NST Reasons for Nonstress Test: OTHER, SEE COMMENT Reason for NST Other: AMA & IVF Gestational Age Gestational Age in Weeks and Days: 37 Weeks and 5Days Test and Monitor Explained Test/Monitor Explained: Test Explained, Monitor Explained and Patient Verbalized Understanding Vital Signs Blood Pressure: 125/70 Pulse: 90 Temperature: 97.7 F Weight: 175 lb Urine Results Urine Protein: Negative Urine Ketones: Negative Urine Glucose: Negative Urine Blood: Positive NST Information Date on Monitor: 01/30/25 Time on Monitor: 15:48 Date off Monitor: 01/30/25 Time off Monitor: 16:14 Total Time on Monitor: 26 NST Interventions: PO Hydration Contraction Frequency: 0 NST Evaluation Patient States Movement: Present FHR Baseline: 140 Variability: Moderate 6-25 bpm Accelerations: 15x15 Decelerations: None NST Results: Reactive Note Ultrasound Done: N/A. NST Note Note: Category 1, reactive NST NST Reviewed and Verified by: Summer Cottrell
[2025-01-30 16:35] VITALS: BP 125/70; PULSE 90; TEMP 36.5
== END 2025-01-30 16:20 ==
LOC: BCD 07:24 → OBS 15:40
PROVIDERS: Visit Provider Advanced Practice Midwife
DX: Z3A.37 37 weeks gestation of pregnancy (principal); O09.523 Supervision of elderly multigravida, third trimester; O09.813 Supervision of pregnancy resulting from assisted reproductive technology, third trimester
CPT/HCPCS: 59025

== ENCOUNTER 2025-02-06 15:15 | Inpatient (IN) | payer BC, SELFPAY ==
[2025-02-06] VITALS (18 sets, daily range): BP systolic 102–129; BP diastolic 57–78; PULSE 73–112; RESP 16; TEMP 36.6–37.2
--- NOTE | 2025-02-06 11:45 | W.PM.OBHPL1 ---
Date of service: 02/06/25 Time of Service: 11:45 Assessment and Plan Assessment and plan (1) Prolonged rupture of membranes: Status: Acute Assessment and plan: Admit to Center and routine admission labs. Comfort measures. Anticipate . (2) Anemia affecting : Status: Acute Assessment and plan: IV before delivery when appropriate OB-HPI Labor/Delivery History of Present Illness Reason for Visit: NST Chief Complaint: Suspected Rupture of Membranes , Associated Signs and Symptoms of Suspected ROM: 0130. LIANG Calculator Estimated Delivery Date Method Current WG Current Estimate 02/15/25 Manual 38w 5d Based on egg transfer; confirmed by u/s on 07/15/24 Other Estimates 02/15/25 Ultrasound #1 38w 5d Comments: Lisa's water broke at 1030. She spoke with Dr Velazco and wished to stay at home and await contractions. She came in for evaluation. History of Present Expected Delivery Route/Plan - CNM FOB - Joey Ramirez (2nd baby together) BB yes to circ unmedicated , would like to use tub, does not like nitrous Pt plans 34 & 36 wk NST, then perhaps weekly, declines IOL if surveillance is nml GBS negative Specific Issues/Plan 1. Hx of Infertility, PCOS IUI ineffective, IVF at [facility], embryo screened for genetic defects 1a. Pt does NOT plan induction of labor unless medically necessary 2. cfDNA not indicated per IVF -Previous neg CF, SMA testing through [facility] in first 2a. At 14 wks pt requests cfDNA screen, was advised to do so by [facility]- cfDNA=low risk 3. History of headaches- taking magnesium daily 4. BMI 33 & PCOS: Hgb A1C=5.2 5. AMA -Niece with hole in heart - level 2 US at [facility]- EICF, echocardiogram scheduled d/t IVF preg, echo 10/23=nml 5a. M recommends growth at 32 wks=EFW 83rd percentile, TAMEKA 19, weekly NST's starting at 34 wks, consider IOL after 39 wks (pt declines IOL if NST's are nml) 6. Increased preeclampsia risk -IVF and AMA, ASA recommended daily 7. Heart murmur, no symptoms - referred to establish care with new PCP 7a. No PCP yet, EKG (wnl) ECHO (wnl), if both normal no consult needed 8. Pelvic pressure with this , advised support belt, consider PT referral if sx worsen 9. anemia of @ 36 wks, hgb 9.7, weekly iron infusions until >11 PFSH All Active Problems (Updated 02/06/25 @ 12:20 by Jacqueline aHrley CNM) Prolonged rupture of membranes (Acute) Anemia affecting (Acute) PCOS (polycystic ovarian syndrome) (Acute) metformin treatment for infertility Heart murmur during (Acute) EKG and Echo are nml Advanced maternal age (AMA) in (Acute) (Acute) Urinary incontinence (Acute) Chronic headaches (Acute) Medical History (Updated 02/06/25 @ 12:20 by Jacqueline Harley CNM) Family history of congenital heart defect niece Family history of arrhythmia History of infertility Surgical History H/O removal of cyst axillary Family History (Updated 07/22/24 @ 15:01 by Jacqueline Harley CNM) Sister Chronic cardiac arrhythmia pacemaker Social History Smoking/Tobacco Use Status: Never Smoking risk assessment performed?: Yes Alcohol Intake: never Substance use type: does not use History History 2 Para 1 Hx # Term Pregnancies 1 Multiple births 0 Hx # Pregnancies 0 Ectopic pregnancies 0 AB induced 0 Hx Number of Living Children 1 AB spontaneous 0 Past Pregnancies Del. Date GA/Weeks # Preg Succ Route Wgt Sex Labor Lgth Anesthesia Location Prov Complic 09/05/22 38 No Yes vaginal 6 lb 9.6 oz Female 17hrs 58min local [facility] Delivery Date: 09/05/22 Last Updated by: Kath Alcazar spont labor, nml Dionne Peggy Meds Allergies and Home Medications Allergies Allergy/AdvReac Type Severity Reaction Status Date / Time diphenhydramine (From Allergy Severe Hives Verified 12/18/24 09:24 Benadryl) Home Medications ?Medication ?Instructions ?Recorded ?Confirmed ?Type vits no.126-ferrous fum 1 tab PO DAILY 02/25/22 01/24/25 History 28 mg iron-folic acid 800 mcg tablet (Classic ) magnesium glycinate 500 mg PO DAILY 07/22/24 01/24/25 History famotidine 20 mg tablet 20 mg PO DAILY #30 tabs 08/19/24 01/24/25 Rx aspirin 81 mg tablet,delayed See Rx Instructions .Route 12/30/24 01/24/25 Rx release .COMPLEX #60 tabs Exam Physical Exam Vital Signs Reviewed: Yes Constitutional Constitutional: no acute distress Detailed Labor and Delivery Exam Dilation: 0.5 Effacement (%): 25 station: -2 Cervix position: mid Consistency: soft Varghese Score: Cervical Points Exam 0 1 2 3 Dilation Closed 1-2cm 3-4 cm 5-6cm Effacement 0-30% 40-50% 60-70% 80% Consistency Firm Medium Soft Station -3 -2 -1,0 +1,+2 Position Posterior Mid Anterior Amniotic Membrane Status: Ruptured Rupture Method: Spontaneous Amniotic Fluid: Clear Pooling: Positive Nitrazine: Equivocal ROM Plus: Positive Monitor Mode: External Contraction Frequency(min): occasional Contraction Duration(sec): 60 Contraction Intensity: Mild Fetus A Heart Rate Baseline: 150 Monitor Accelerations: 15 X 15 Monitor Decelerations: None Variability: Moderate (6-25 BPM) Presentation: Cephalic Categories: Category I Est. Weight: 7 lb Date of Membrane Rupture: 02/06/25 Time of Membrane Rupture: 12:50 HEENT Exam HEENT Exam: Normal Neck Exam Neck Exam: Normal Respiratory Exam Respiratory Exam: Normal Cardiovascular Exam Cardiovascular Exam: Normal Abdominal Exam Abdominal Exam: Normal Rectal Exam Rectal Exam: Normal Exam Exam: Normal Extremities Exam Extremities Exam: Normal Back/Spine/Pelvis Exam Back Exam: Normal Skin Exam Skin Exam: Normal Psychiatric Exam Psychiatric Exam: Normal Risk Assessment Risk for Shoulder Dystocia Historical/Initial OB: NEGATIVE FOR: Pelvic Abnormality, Pre- BMI>30, Previous Shoulder Dystocia or Previous Macrosomia 36 Weeks: NEGATIVE FOR: Current Gestational DM, EFW>4500gms or Maternal Weight Gain>40lbs 40 Weeks: NEGATIVE FOR: EFW> 4500 gms, Maternal Weight Gain >40lb or Post Dates Risk for Pre-Eclampsia Yes, if one or more: NEGATIVE FOR: Hx Pre-E/Gest HTN, Chronic HTN, Multiple Gestation, Pre-gestational DM, Renal Disease, Systemic Lupus or APA Syndrome Yes, if 2 or more: POSITIVE FOR: Age>= 35 yrs (IVF ); NEGATIVE FOR: Nulliparity, >10yr btwn pregnancies, BMI>30, ethinicty, Mother/Sister w/ Pre-E or Previous IUGR Risk for Post- Hemorrhage Initial: NEGATIVE FOR: Multiple Gestation, Previous PPH, Known Clotting Deficiency, Grand Multiparity or Anticoagulation 36 Weeks: POSITIVE FOR: Anemia, hgb<10; NEGATIVE FOR: Low platelets(thrombocytopenia), Gestational HTN or Pre-E, Polyhydraminios or EFW>4500gms 40 Weeks: POSITIVE FOR: Anemia, hgb<10; NEGATIVE FOR: Low platelets (thrombocytopenia), Gestation HTN or Pre-E, Polyhydraminios or EFW>4500gms At Risk?: Yes Risks Reviewed Risks Reviewed Upon Admission: Yes
[2025-02-06 12:12] LABS: HCT 30.4 % (36.0-46.0); HGB 9.5 g/dL (11.2-15.7); MCH 25.1 pg (27.0-33.0); MCHC 31.3 % (32.0-36.0); MCV 80 fL (80-95); MPV 12.0 fL (8.0-11.0); Platelet Count 166 10^3/uL (130-400); RBC 3.79 10^6/uL (3.93-5.22); RDW 16.0 % (11.7-14.6); RDW-SD 45.1 fL; WBC 6.80 10^3/uL (4.4-10.8)
[2025-02-06] MEDS: miSOPROStol 25 MCG TAB VG (12:16)
--- NOTE | 2025-02-06 17:28 | W.PM.OBNL1 ---
Date of service: 02/06/25 Time of Service: 17:28 Pelvic Exam Dilation: 2 Effacement (%): 50 station: -2 Cervix Position: mid Consistency: soft Vaginal Exam Presentation: Cephalic Pooling: Positive Contractions Monitor Mode: External Contraction Frequency(min): evry 2-3 Contraction Duration(sec): 40-50 Intensity: Mild/Moderate Fetus A Monitor: External (US) Heart Rate Baseline: 140 Presentation: Cephalic Variability: Moderate (6-25 BPM) Categories: Category I FHR Rhythm: Regular Accelerations: 15 X 15 Decelerations: None Amniotic Membrane Status: Ruptured Assessment and Plan Assessment and plan (1) Prolonged rupture of membranes: Status: Acute Assessment and plan: Lisa declines medication at this time for labor augmentation. Prefers minimal intervention in labor. Anticipate . Objective Abnormal lab results 02/06/25 Range/Units 12:07 RBC 3.79 L (3.93-5.22) 10^6/uL Hgb 9.5 L (11.2-15.7) g/dL Hct 30.4 L (36.0-46.0) % MCH 25.1 L (27.0-33.0) pg MCHC 31.3 L (32.0-36.0) % RDW 16.0 H (11.7-14.6) % MPV 12.0 H (8.0-11.0) fL Laboratory Results WBC 6.80 10^3/uL (4.4-10.8) 02/06/25 12:07 RBC 3.79 10^6/uL (3.93-5.22) L 02/06/25 12:07 Hgb 9.5 g/dL (11.2-15.7) L 02/06/25 12:07 Hct 30.4 % (36.0-46.0) L 02/06/25 12:07 MCV 80 fL (80-95) 02/06/25 12:07 MCH 25.1 pg (27.0-33.0) L 02/06/25 12:07 MCHC 31.3 % (32.0-36.0) L 02/06/25 12:07 RDW 16.0 % (11.7-14.6) H 02/06/25 12:07 Plt Count 166 10^3/uL (130-400) 02/06/25 12:07 MPV 12.0 fL (8.0-11.0) H 02/06/25 12:07 Membranes Rupture Positive 02/06/25 10:15 ABO/Rh A Positive 02/06/25 12:07 Antibody Screen NEGATIVE 02/06/25 12:07 Subjective Patient Reports: New Complaints Interval history since last seen: Lisa reports that contractions are stronger and more regular. Results Hemoglobin/Hematocrit: Hgb 9.5 g/dL (11.2-15.7) L 02/06/25 12:07 Hct 30.4 % (36.0-46.0) L 02/06/25 12:07 Abnormal Lab Findings: Abnormal Labs 02/06/25 12:07 RBC 3.79 L Hgb 9.5 L Hct 30.4 L MCH 25.1 L MCHC 31.3 L RDW 16.0 H MPV 12.0 H
[2025-02-06] MEDS: Oxytocin/Normal Saline 30 UNIT/500 ML BAG 167 UNITS IV (20:21)
--- NOTE | 2025-02-06 20:22 | PLAC_PTH ---
PATIENT: Lisa Ramirez LOC: OBS U#:[id number] AGE/SX: 35/F ROOM: OBS.300 RE02/06/[address]: Carleen Velazco MD : 1990 BED: A DIS: 02/08/2025 SPEC #: [id number] RECD: 02/07/25 12:22 STATUS: AYANNA REQ #: [id number] HANNHA: 02/06/25 20:[address]: Carleen Velazco DEPT: Surgical Specimen RECD BY: Aileen Flores ENTERED: 02/07/25 12:22 SP TYPE: PLAC OTHR DR: Jacqueline Harley Unknown,Unknown Tissues: 1 - PLACENTA (3RD TRIMESTER) Procedures: GROSS AND MICRO LEVEL 5 Comments: [id number]
[2025-02-06] MEDS: Ibuprofen 600 MG TAB (21:05)
--- NOTE | 2025-02-06 21:54 | W.OBDELIVERY ---
Date of service: 02/06/25 Time of Service: 21:54 OB Labor/ Delivery Information Baby A Delivery Delivery Method: Spontaneaous Presentation: Cephalic Cephalic Position: Vertex Vertex Position: Right Occipital Anterior Cord Description-Baby A: 3 Vessels Cord Description Comment: loose nuchal cord and loose body cord. Amniotic Fluid: Clear Quantitative Blood Loss: 250 Delivery Outcome: Liveborn Transferred: Remains with Mother Note: Lisa used the shower and tub for comfort. She complained of strong contractions and moved from the tub to hands and knees on the bed. FHTs 140s during first stage of labor. FHTs 150s in second stage. She progressed to full dilation and began pushing. Second stage huddle was done. Spontaneous delivery of male delivered in DOUGLAS position. Baby had a loose nuchal cord which was slipped over the head after delivery of the head. The shoulders delivered easily and a loose body cord was also encountered. The baby was dried and stimulated and he did not have a sponmtaneous cry. The cord was cut by the baby's father and the baby was transferred to the warmer. He had a sponatneous cry and was vigorous when he was taken to the warmer. Cord blood gasses were obtained. He was was placed skin to skin on mother's abdomen shortly after for bonding. The placenta delivered spontaneously and appears to be intact with a three vessel cord. Pitocin IV 30 units was administered before delivery of the placenta. The placenta was noted to be bilobed with a connecting vessel. it will be sent to pathology at [facility]. The perineum was inspected and a left perineal abrasion was repaired with 1 figure 8 3-0 vicryl suture. The baby did breastfeed. After delivery, Mother and baby and father of the baby were stable and bonding well in the delivery room and there were no complications. Providers Nurse Cash Van Salesperson: Jacqueline Harley Nurse: Mohini Gilliland Nurse: Jackie Alcazar Labor/Delivery Information Number of Babies in Womb: 1 Steroids Given: None Reason Steroids Not Administered: N/A Group Beta Strep: Negative Antibiotics Administered: No Rubella Status: Immune Blood Type: A+ Varicella Immunity: Immune Born En Route: No Maternal Complications: None Shoulder Dystocia: No Stages of Labor Onset of Labor Date: 02/06/25 Onset of Labor Time: 01:30 Complete Dilatation Date: 02/06/25 Complete Dilatation Time: 20:14 Labor - Stage 1 Duration: 18 hours and 44 minutes ROM Baby A: 02/06/25 ROM Baby A: 12:50 Delivery Date-Baby A: 02/06/25 Delivery Time-Baby A: 20:17 Labor Stage 2 Duration: 3 minutes Placenta Delivery Date-Baby A: 02/06/25 Placenta Delivery Time-Baby A: 20:22 Labor-Stage 3 Duration: 5 minutes Total Length of Labor-Baby A: 18 hours and 47 minutes Placenta Status: Delivered Baby A Infant Gender: Male Gestational Status: Early Term (37-38.6 wks) Gestational Age in Weeks/Days: 38 Weeks and 5 Days Length-Baby A: 19.69 in Score-1 Minute Interval(Baby A) Heart Rate-1 minute: 100 BPM or Greater Respiratory Effort- 1 minute: No Spontaneous Effort Muscle Tone-1 minute: Minimal Flexion/Extension Reflex Response-1 minute: Minimal Response Color-1 minute: Bluish Hands or Feet Total Score-1 minute: 5 Score-5 Minute Interval(Baby A) Heart Rate- 5 minute: 100 BPM or Greater Respiratory Effort-5 minute: Spontaneous/Strong Cry Muscle Tone-5 minute: Active Movement Reflex Response-5 minute: Prompt Response Color-5 minute: Bluish Hands or Feet Total Score- 5 minute: 9 Interventions Repair of Laceration Type: Perineal, Laceration Extension: First Degree. Sponge Count Correct: No Sponges Placed in Vagina, Sharp Count Correct: Yes.
[2025-02-07] MEDS: Normal Saline Flush 10 ML SYR IVP (00:15)
[2025-02-07] MEDS: Dibucaine 1% 28 GM TUBE TP (00:34)
[2025-02-07] MEDS: Hamamelis Leaf/Glycerin 100 EACH BOX PR (00:34)
[2025-02-07 01:21] VITALS: BP 124/59; PULSE 82
[2025-02-07] MEDS: Ibuprofen 600 MG TAB PO ×4 (02:46→21:09)
[2025-02-07 06:54] LABS: HCT 30.7 % (36.0-46.0); HGB 9.6 g/dL (11.2-15.7); MCH 25.0 pg (27.0-33.0); MCHC 31.3 % (32.0-36.0); MCV 80 fL (80-95); MPV 12.3 fL (8.0-11.0); Platelet Count 170 10^3/uL (130-400); RBC 3.84 10^6/uL (3.93-5.22); RDW 15.9 % (11.7-14.6); RDW-SD 45.0 fL; WBC 10.93 10^3/uL (4.4-10.8)
[2025-02-07] MEDS: Docusate Sodium 100 MG CAP PO (07:13)
[2025-02-07] MEDS: Acetaminophen 325 MG TAB 650 MG PO ×4 (07:13→21:08)
[2025-02-07 07:15] VITALS: BP 108/72; PULSE 84; RESP 16; TEMP 36.7
[2025-02-07 12:30] VITALS: BP 119/80; PULSE 73; RESP 16; TEMP 36.6
[2025-02-07 15:08] VITALS: TEMP 36.6
[2025-02-07 15:09] VITALS: TEMP 36.6
--- NOTE | 2025-02-07 18:12 | W.PM.OBPNV1 ---
Date of service: 02/07/25 Time of Service: 18:12 Assessment and Plan Assessment and plan (1) Term of male : Status: Acute Assessment and plan: Caring for baby independently. Pain is managed well with oral analgesics. Voiding without difficulty. fairly well with some latch issues. baby had circ today . A - stable mother and baby , Post day 1 P - Discharge to home tomorrow. Routine post instructions. Follow up at [facility]. Subjective Subjective Interval history: Lisa feels well. Patient comments: Pain well controlled Patient's Mood: tired but happy baby status: Doing well feeding status: Exclusively breast feeding Narrative: Lisa has been experiencing some nipple pain with latch and is receiving support from terry RODRIGUEZ Exam Physical Exam Vital signs: Temp Pulse Resp BP 97.9 F 73 16 119/80 02/07/25 15:09 02/07/25 12:30 02/07/25 12:30 02/07/25 12:30 Vital Signs Reviewed: Yes Constitutional Constitutional: no acute distress HEENT Exam HEENT Exam: Normal Respiratory Exam Respiratory Exam: Normal Cardiovascular Exam Cardiovascular Exam: Normal Fundal Exam Fundus: Below Umbilicus and Firm Extremities Exam Extremity Exam: Normal Skin Exam Skin Exam: Normal Psychiatric Exam Psychiatric Exam: Normal Results Hemoglobin/Hematocrit: Hgb 9.6 g/dL (11.2-15.7) L 02/07/25 06:09 Hct 30.7 % (36.0-46.0) L 02/07/25 06:09 Abnormal Lab Findings: Abnormal Labs 02/06/25 02/07/25 12:07 06:09 WBC 10.93 H RBC 3.79 L 3.84 L Hgb 9.5 L 9.6 L Hct 30.4 L 30.7 L MCH 25.1 L 25.0 L MCHC 31.3 L 31.3 L RDW 16.0 H 15.9 H MPV 12.0 H 12.3 H
[2025-02-07 18:35] VITALS: BP 120/77; PULSE 76; RESP 16; TEMP 36.6
[2025-02-08] MEDS: Ibuprofen 600 MG TAB PO (06:25)
[2025-02-08] MEDS: Acetaminophen 325 MG TAB 650 MG PO (06:26)
[2025-02-08 08:00] VITALS: BP 116/76; PULSE 80; RESP 12; TEMP 37.2
--- NOTE | 2025-02-08 08:25 | DSE_ITS ---
Date of service: 02/08/25 Time of Service: 09:27 DS: Diagnosis Discharge Diagnosis (1) Term of male : Status: Acute Discharge Plan Disposition Patient Disposition: Home Condition: Good Discharge Details Reason For Visit: Ruptured Membranes Admit Date/Time: 02/06/25 15:15 Admit Provider: Jacqueline Harley Attending Provider: Carleen Velazco Primary Care Provider: Unknown,Unknown Hospital Course Hospital Course: Lisa is a 35-year-old G2 now P2002 who arrived at 38+5 in spontaneous labor after SROM at home. She used her own inner resources to achieve the delivery of a viable male weighing 3540 grams. 1st degree lac. No other complications. Bilobed placenta with connecting vessel sent to pathology. Baby had difficulty transitioning, was brought to the warmer briefly and soon returned to maternal chest. APGARS 5/9. She had a normal course. On PPD #2, she was and working on refining latch, ambulating and voiding normally. Lochia was WNL. Normal discharge instructions were reviewed prior to discharge home. Home Meds and New Rx's Prescriptions: Discontinued aspirin 81 mg tablet,delayed release (DR/EC) See Rx Instructions .ROUTE .COMPLEX Qty: 60 4RF Dose Instruction: TAKE TWO TABLETS BY MOUTH EVERY DAY Rx Instructions: TAKE TWO TABLETS BY MOUTH EVERY DAY No Action Classic 28 mg iron- 800 mcg tablet 1 tab PO DAILY magnesium glycinate 100 mg magnesium capsule 500 mg PO DAILY famotidine 20 mg tablet 20 mg PO DAILY Qty: 30 5RF Discharge Instructions Stand Alone Forms: BC Instructions, BC Post Vaginal Deliver Activity:: Activity as Tolerated Equipment/Supplies:: No Equipment Needed Diet:: Normal Diet Discharge Orders Discharge Orders: Discharge Order (Routine); Ordered 02/08/25 Ordered By: Mohini Cedillo OB:DS Summary Summary Vaginal Delivery Method: Spontaneaous Episiotomy Description: None Laceration Description: Perineal Laceration Extension: First Degree Contraception Discussed Contraception Discussed: Yes, [place] Gender-Baby A: Male weight: 7 lb 12.87 oz Disposition of Baby A: Home Status at Discharge Functional status at discharge: independent ambulation Overall status at discharge: patient is progressing back to baseline Mental Status: mental status grossly normal Speech and Movement: speech and movement normal Mood: congruent mood Affect: normal affect Time Spent with Patient providing and/or coordinating discharge services: Less than 30 minutes Exam Physical Exam Vital signs: Temp Pulse Resp BP 97.9 F 76 16 120/77 02/07/25 18:35 02/07/25 18:35 02/07/25 18:35 02/07/25 18:35 Vital Signs Reviewed: Yes Constitutional Constitutional: no acute distress HEENT Exam HEENT Exam: Normal Respiratory Exam Respiratory Exam: Normal Cardiovascular Exam Cardiovascular Exam: Normal Fundal Exam Fundus: Below Umbilicus Rectal Exam Rectal Exam: Not Done Extremities Exam Extremity Exam: Normal Psychiatric Exam Psychiatric Exam: Normal DetailedPsychiatric Exam Psych Exam: Normal Affect, Normal Thougth Process, Good Insight and Good Judgement PFSH All Active Problems (Updated 02/07/25 @ 18:14 by Jacqueline Harley CNM) Term of male (Acute) Urinary incontinence (Acute) Medical History (Updated 02/07/25 @ 18:14 by Jacqueline Harley CNM) Chronic headaches PCOS (polycystic ovarian syndrome) metformin treatment for infertility Heart murmur during EKG and Echo are nml Family history of congenital heart defect niece Family history of arrhythmia History of infertility Surgical History H/O removal of cyst axillary Family History (Updated 07/22/24 @ 15:01 by Jacqueline Harley CNM) Sister Chronic cardiac arrhythmia pacemaker Social History Smoking/Tobacco Use Status: Never Smoking risk assessment performed?: Yes Alcohol Intake: never Substance use type: does not use History History 2 Para 1 Hx # Term Pregnancies 1 Multiple births 0 Hx # Pregnancies 0 Ectopic pregnancies 0 AB induced 0 Hx Number of Living Children 1 AB spontaneous 0 Past Pregnancies Del. Date GA/Weeks # Preg Succ Route Wgt Sex Labor Lgth Anesth esia Location [facility] 09/05/22 38 No Yes vaginal 6 lb 9.6 oz Female 17hrs 58min local [facility] Delivery Date: 09/05/22 Last Updated by: Kath Alcazar spont labor, nml Dionne Peggy DS: Data Vitals/I&O Vitals and I&O: Vital Signs Temperature 97.9 F 02/07/25 18:35 Temperature 97.9 F 02/06/25 10:38 Temperature Source Oral 02/07/25 18:35 Pulse 76 02/07/25 18:35 Pulse 112 02/06/25 10:38 Pulse Rhythm Regular 02/07/25 20:30 Respiratory Rate 16 02/07/25 18:35 Blood Pressure 120/77 02/07/25 18:35 Blood Pressure 118/78 02/06/25 10:38 Blood Pressure Mean 91 02/07/25 18:35 Pain Level 2 02/07/25 18:35 Intake & Output 02/07/25 02/07/25 02/08/25 11:59 23:59 11:59 Output Total 700 / 700 Balance -700 / -700 Output: Urine 700 / 700 Other: Urine Color Yellow Yellow Urine Appearance Clear Urine Odor None Comment Voiding in toilet independently.
== END 2025-02-08 11:30 | disposition home or self-care (01) | DRG 807 ==
LOC: BCD 15:16 → OBS 15:16
PROVIDERS: Admitting Provider Advanced Practice Midwife; Visit Provider Obstetrics & Gynecology
DX: O42.02 Full-term premature rupture of membranes, onset of labor within 24 hours of rupture (principal); Z37.0 Single live birth; O99.02 Anemia complicating childbirth; Z3A.38 38 weeks gestation of pregnancy; O99.284 Endocrine, nutritional and metabolic diseases complicating childbirth; E28.2 Polycystic ovarian syndrome; O69.81X0 Labor and delivery complicated by cord around neck, without compression, not applicable or unspecified; O43.193 Other malformation of placenta, third trimester; O70.0 First degree perineal laceration during delivery
CPT/HCPCS: 36415; 84112; 85027; 86850; 86900; 86901; 88307; J3490